=== PATIENT | female | born 1960 | race Caucasian/White ===

== ENCOUNTER 2023-08-06 10:18 | Inpatient (IN) | payer OTHER ==
[~2023-08-06] VITALS: Ht 170.2 cm; Wt 59.0 kg
[2023-08-06] MEDS ORDERED: LINA145C PO (10:32)
[2023-08-06] MEDS ORDERED: OXYC5CAP18 PO (10:32)
[2023-08-06] MEDS ORDERED: LACT10SO58 PO (10:32)
[2023-08-06] MEDS ORDERED: DOCU100C36 PO (10:32)
[2023-08-06] MEDS ORDERED: FURO20TA4 PO (10:32)
[2023-08-06] MEDS ORDERED: PANT40TA49 PO (10:32)
[2023-08-06] MEDS: IV NORMAL SALINE 1000 ML BAG IV ONE (10:40)
[2023-08-06] MEDS ORDERED: POLY17PO4 PO (10:48)
[2023-08-06] MEDS ORDERED: NALO4SPR NS (10:48)
[2023-08-06] MEDS ORDERED: METO-356 PO (10:48)
[2023-08-06] MEDS ORDERED: LIDOCAINE PATCH 4% TD (10:48)
[2023-08-06] MEDS ORDERED: NICO-625 TD (10:48)
[2023-08-06] MEDS ORDERED: GABA-532 PO (10:48)
[2023-08-06] MEDS ORDERED: ACET325C7 PO (10:49)
[2023-08-06] MEDS ORDERED: MAGN400O6 PO (10:49)
[2023-08-06] MEDS ORDERED: ASCO500C18 PO (10:49)
[2023-08-06] MEDS ORDERED: MULT-213 PO (10:49)
[2023-08-06] MEDS ORDERED: BISA10SU61 RC (10:49)
[2023-08-06] MEDS ORDERED: NA P133E RC (10:49)
[2023-08-06] MEDS ORDERED: ZINC SULFATE PO (10:49)
[2023-08-06] MEDS ORDERED: CEFTRIAXONE /D5W 50ML IVPB **ER PYXIS IV ONE (11:26)
[2023-08-06] MEDS ORDERED: METRONIDAZOLE 500 MG/NS 100ML 100 ML IV ONE (11:26)
[2023-08-06 11:47] LABS: BASOPHILS # (AUTO) 0.1 K/UL (0.0-0.2); BASOPHILS % (AUTO) 0.7 % (0.0-2.0); EOSINOPHILS % (AUTO) 0.3 % (0.0-7.0); HEMATOCRIT 46.1 % (31.2-41.9); HEMOGLOBIN 14.7 g/dL (10.9-14.3); LYMPHOCYTES # (AUTO) 1.8 K/uL (0.8-4.8); LYMPHOCYTES % (AUTO) 22.8 % (20.5-51.5); MEAN CORPUSCULAR HEMOGLOBIN 27.9 uug (24.7-32.8); MEAN CORPUSCULAR HGB CONC 32 g/dL (32.3-35.6); MEAN CORPUSCULAR VOLUME 87.7 fL (75.5-95.3); MONOCYTES # (AUTO) 0.6 K/uL (0.1-1.30); MONOCYTES % (AUTO) 7.3 % (0.0-11.0); NEUTROPHILS # (AUTO) 5.3 K/uL (1.8-8.9); NEUTROPHILS % (AUTO) 68.9 % (38.5-71.5); PLATELET COUNT (AUTO) 156 K/uL (179-408); RED BLOOD CELL COUNT(AUTO) 5.26 MIL/uL (3.63-4.92); RED CELL DISTRIBUTION WIDTH 18.7 % (12.3-17.7); WHITE BLOOD COUNT (AUTO) 7.8 K/uL (3.8-11.8)
[2023-08-06 11:49] LABS: DIFFERENTIAL COMMENT 1
[2023-08-06 11:49] LABS: ABG HCO3 31.1 mmol/L (22.0-26.0); ABG PCO2 46.4 mmHg (35.0-48.0); ABG PH 7.444 (7.340-7.440); ABG PO2 70.9 mmHg (75.0-100.0); ABG SITE RIGHT RADIAL; ABG TOTAL HEMOGLOBIN 13.9 G/dL (12.0-16.0); AaDO2 94.7 mmHg; MetHb 0.1 % (0.0-1.5); O2Hb 93.4 % (94.0-97.0)
[2023-08-06] MEDS: CEFTRIAXONE 1 G in IV DEXTROSE 5% 50 ML IV ONE (11:52)
[2023-08-06 12:15] LABS: CARBON DIOXIDE 28 mmol/L (21-32); CHLORIDE 98 mmol/L (98-107); CREATININE 1.5 mg/dL (0.6-1.3); GLUCOSE 146 mg/dL (74-106); SODIUM SERUM 138 mmol/L (136-145); UREA NITROGEN, BLOOD 52 mg/dL (7-18)
[2023-08-06 12:17] LABS: POTASSIUM 2.8 mmol/L (3.5-5.1)
[2023-08-06 12:23] LABS: ALANINE AMINOTRANSFERASE 36 U/L (14-59); ALBUMIN 2.6 g/dL (3.4-5.0); ALKALINE PHOSPHATASE 759 U/L (50-136); ASPARTATE AMINOTRANSFERASE 146 U/L (15-37); BILIRUBIN,DIRECT 0.2 mg/dL (0.0-0.2); BILIRUBIN,TOTAL 0.6 mg/dL (0.2-1.0); NT-PRO BNP 814 pg/mL (0-125); TOTAL PROTEIN, SERUM 7.5 g/dL (6.4-8.2)
[2023-08-06 12:24] LABS: CALCIUM 17.3 mg/dL (8.5-10.1)
[2023-08-06] MEDS: METRONIDAZOLE 500 MG/NS 100ML 100 ML IV ONE (12:25)
[2023-08-06] MEDS ORDERED: IV NS 1000 ML 1,000 ML IV PRN (14:30)
[2023-08-06] MEDS: POTASSIUM CHLORIDE 50 ML IV SCH ×2 (15:30→21:58)
[2023-08-06] MEDS: ENOXAPARIN SODIUM 40 MG/0.4 ML DISP.SYRIN SQ SCH (16:59)
[2023-08-06 18:00] VITALS: BP 124/69; TEMP 97.5; O2SAT 94
[2023-08-06] MEDS: PAMIDRONATE DISODIUM 30 MG in IV NORMAL SALINE 500 ML IV ONE (18:45)
[2023-08-06 20:00] VITALS: BP 105/66; TEMP 97.3; O2SAT 96
[2023-08-06] MEDS: IV NS 1000 ML 1,000 ML IV PRN ×2 (21:38→23:28)
[2023-08-06] MEDS: CLINDAMYCIN PHOSPHATE IV 600 MG in IV DEXTROSE 5% 100 ML IV SCH (21:40)
[2023-08-07] VITALS (7 sets, daily range): BP systolic 108–146; BP diastolic 61–81; TEMP 97.2–98.2; O2SAT 95–98
[2023-08-07] MEDS: MORPHINE SULFATE 2 MG/1 ML DISP.SYRIN IV PRN (01:01)
[2023-08-07 07:08] LABS: BASOPHILS % (AUTO) 0.8 % (0.0-2.0); EOSINOPHILS # (AUTO) 0.1 K/uL (0.0-0.7); EOSINOPHILS % (AUTO) 1.5 % (0.0-7.0); HEMATOCRIT 38.8 % (31.2-41.9); HEMOGLOBIN 12.5 g/dL (10.9-14.3); LYMPHOCYTES # (AUTO) 1.8 K/uL (0.8-4.8); LYMPHOCYTES % (AUTO) 30.6 % (20.5-51.5); MEAN CORPUSCULAR HEMOGLOBIN 28.1 uug (24.7-32.8); MEAN CORPUSCULAR HGB CONC 32 g/dL (32.3-35.6); MEAN CORPUSCULAR VOLUME 87.3 fL (75.5-95.3); MONOCYTES # (AUTO) 0.6 K/uL (0.1-1.30); MONOCYTES % (AUTO) 9.6 % (0.0-11.0); NEUTROPHILS # (AUTO) 3.4 K/uL (1.8-8.9); NEUTROPHILS % (AUTO) 57.5 % (38.5-71.5); PLATELET COUNT (AUTO) 151 K/uL (179-408); RED BLOOD CELL COUNT(AUTO) 4.45 MIL/uL (3.63-4.92); RED CELL DISTRIBUTION WIDTH 18.8 % (12.3-17.7); WHITE BLOOD COUNT (AUTO) 5.9 K/uL (3.8-11.8)
[2023-08-07 07:16] LABS: DIFFERENTIAL COMMENT 1
[2023-08-07 07:18] LABS: MAGNESIUM 1.6 mg/dL (1.8-2.4); PHOSPHOROUS 3.6 mg/dL (2.5-4.9)
[2023-08-07] MEDS: PROTEIN SUPPLEMENT (PROSTAT) 30 ML LIQUID PO SCH (12:44)
[2023-08-07] MEDS ORDERED: PAMIDRONATE DISODIUM 60 MG in IV NORMAL SALINE 500 ML IV ONE ×2 (15:00→16:00)
[2023-08-07] MEDS: CLOTRIMAZOLE 1% CREAM 30 GM TUBE TOP SCH (17:10)
[2023-08-07] MEDS: POTASSIUM CHLORIDE 20 MEQ TAB.PRT.SR PO SCH (17:20)
[2023-08-07] MEDS: MAGNESIUM OXIDE 400 MG TABLET PO ONE (17:58)
[2023-08-07] MEDS: CLOTRIMAZOLE/BETAMET DIPROP CREAM 15 GM TUBE TOP SCH (17:58)
[2023-08-07] MEDS: PAMIDRONATE DISODIUM 60 MG in IV NORMAL SALINE 500 ML IV ONE (18:21)
[2023-08-07] MEDS ORDERED: IOHEXOL 350 100 ML INFUS..BTL ONE (19:03)
[2023-08-07] MEDS ORDERED: IV NORMAL SALINE 250 ML IV ONE (19:03)
[2023-08-07] MEDS ORDERED: SWABABLE VALVE TRANSFER SET EA MC ONE (19:03)
[2023-08-08] MEDS: ENOXAPARIN SODIUM 60 MG/0.6 ML DISP.SYRIN SQ SCH (00:52)
[2023-08-08 04:52] VITALS: BP 128/62; TEMP 98.2; O2SAT 99
[2023-08-08 07:28] LABS: ALBUMIN 2.1 g/dL (3.4-5.0); BASOPHILS # (AUTO) 0.1 K/UL (0.0-0.2); BASOPHILS % (AUTO) 0.9 % (0.0-2.0); BILIRUBIN,TOTAL 0.6 mg/dL (0.2-1.0); EOSINOPHILS # (AUTO) 0.2 K/uL (0.0-0.7); EOSINOPHILS % (AUTO) 2.7 % (0.0-7.0); HEMATOCRIT 39.1 % (31.2-41.9); HEMOGLOBIN 12.9 g/dL (10.9-14.3); LYMPHOCYTES # (AUTO) 1.6 K/uL (0.8-4.8); LYMPHOCYTES % (AUTO) 27.6 % (20.5-51.5); MAGNESIUM 1.3 mg/dL (1.8-2.4); MEAN CORPUSCULAR HEMOGLOBIN 28.4 uug (24.7-32.8); MEAN CORPUSCULAR HGB CONC 33 g/dL (32.3-35.6); MEAN CORPUSCULAR VOLUME 86.2 fL (75.5-95.3); MONOCYTES # (AUTO) 0.5 K/uL (0.1-1.30); MONOCYTES % (AUTO) 8.7 % (0.0-11.0); NEUTROPHILS # (AUTO) 3.4 K/uL (1.8-8.9); NEUTROPHILS % (AUTO) 60.1 % (38.5-71.5); PHOSPHOROUS 2.7 mg/dL (2.5-4.9); PLATELET COUNT (AUTO) 148 K/uL (179-408); RED BLOOD CELL COUNT(AUTO) 4.54 MIL/uL (3.63-4.92); TOTAL PROTEIN, SERUM 6.5 g/dL (6.4-8.2); WHITE BLOOD COUNT (AUTO) 5.7 K/uL (3.8-11.8)
[2023-08-08 07:30] VITALS: BP 146/83; TEMP 97.6; O2SAT 98
[2023-08-08 07:33] LABS: DIFFERENTIAL COMMENT 1
[2023-08-08 08:08] LABS: CARCINOEMBRYONIC AG (CEA) 99.3 ng/mL (0.0-4.7)
[2023-08-08 08:23] LABS: CALCIUM 13.5 mg/dL (8.5-10.1)
[2023-08-08 08:24] LABS: POTASSIUM 3.5 mmol/L (3.5-5.1)
[2023-08-08 10:11] LABS: FOLATE (FOLIC ACID), SERUM 5.3 ng/mL (>3.0)
[2023-08-08 12:00] VITALS: BP 148/82; TEMP 97.2; O2SAT 97
[2023-08-08 12:09] LABS: *IMMUNOGLOBULIN G, SERUM 1032 mg/dL (586-1602); HEPATITIS B SURFACE AB, QUAL Reactive (.); HEPATITIS B SURFACE AG Negative (Negative); HEPATITIS C VIRUS ANTIBODY Non Reactive (Non Reactive); IMMUNOGLOBULIN A, SERUM 239 mg/dL (87-352); IMMUNOGLOBULIN M, SERUM 170 mg/dL (26-217)
[2023-08-08] MEDS ORDERED: CLINDAMYCIN PHOSPHATE IV 600 MG in IV DEXTROSE 5% 50 ML IV SCH (12:36)
[2023-08-08] MEDS: CLINDAMYCIN PHOSPHATE IV 600 MG in IV DEXTROSE 5% 50 ML IV SCH (13:06)
[2023-08-08 13:10] LABS: FREE KAPPA LT CHAINS SERUM 48.3 mg/L (3.3-19.4); FREE LAMBDA LT CHAIN SERUM 38.1 mg/L (5.7-26.3); KAPPA/LAMBDA RATIO SERUM 1.27 (0.26-1.65)
[2023-08-08 15:08] LABS: A/G RATIO 0.7 (0.7-1.7); ALBUMIN 2.1 g/dL (2.9-4.4); ALPHA-1-GLOBULIN 0.3 g/dL (0.0-0.4); ALPHA-2-GLOBULIN 0.9 g/dL (0.4-1.0); BETA GLOBULIN 0.8 g/dL (0.7-1.3); GLOBULIN, TOTAL 3.1 g/dL (2.2-3.9); M-SPIKE Not Observed g/dL (Not Observed)
[2023-08-08] MEDS ORDERED: GABA300C PO (15:20)
[2023-08-08 15:28] LABS: ANISOCYTOSIS 2+; PLATELET ESTIMATE ADEQUATE
[2023-08-08] MEDS ORDERED: TEMA7.5C PO (15:30)
[2023-08-08] MEDS ORDERED: LORA0.5T48 PO (15:30)
[2023-08-08 15:59] VITALS: BP 144/82; TEMP 97.2; O2SAT 97
[2023-08-08 16:13] LABS: LYMPHOCYTES % (MANUAL) 28 % (20-40); MONOCYTES % (MANUAL) 10 % (2-10); NEUTROPHILS % (MANUAL) 62 % (42-75)
[2023-08-09] VITALS (7 sets, daily range): BP systolic 112–174; BP diastolic 65–93; TEMP 97.7–98.2; O2SAT 94–100
[2023-08-09 08:22] LABS: POTASSIUM 2.2 mmol/L (3.5-5.1)
[2023-08-09 08:23] LABS: CALCIUM 11.9 mg/dL (8.5-10.1); CREATININE 0.8 mg/dL (0.6-1.3); MAGNESIUM 1.2 mg/dL (1.8-2.4)
[2023-08-09] MEDS: POTASSIUM CHLORIDE 50 ML IV SCH (08:51)
[2023-08-09] MEDS: POTASSIUM CHLORIDE 20 MEQ in IV NS 1000 ML 1,000 ML IV PRN (08:55)
[2023-08-09 09:03] LABS: LYMPHOCYTES % (MANUAL) 0 % (20-40); NEUTROPHILS % (MANUAL) 0 % (42-75)
[2023-08-09] MEDS: MAGNESIUM OXIDE 400 MG TABLET PO SCH (11:03)
[2023-08-10 00:53] VITALS: BP 156/90; TEMP 98.2; O2SAT 100
[2023-08-10 04:44] VITALS: BP 156/90; TEMP 98.4; O2SAT 100
[2023-08-10] MEDS: MAGNESIUM HYDROXIDE 30 ML LIQUID UDC PO ONE (06:07)
[2023-08-10 07:08] LABS: BASOPHILS % (AUTO) 0.7 % (0.0-2.0); EOSINOPHILS # (AUTO) 0.1 K/uL (0.0-0.7); HEMOGLOBIN 11.5 g/dL (10.9-14.3); LYMPHOCYTES # (AUTO) 1.7 K/uL (0.8-4.8); LYMPHOCYTES % (AUTO) 28.2 % (20.5-51.5); MEAN CORPUSCULAR HEMOGLOBIN 28.2 uug (24.7-32.8); MEAN CORPUSCULAR HGB CONC 33 g/dL (32.3-35.6); MEAN CORPUSCULAR VOLUME 85.7 fL (75.5-95.3); MONOCYTES # (AUTO) 0.6 K/uL (0.1-1.30); MONOCYTES % (AUTO) 9.1 % (0.0-11.0); NEUTROPHILS # (AUTO) 3.7 K/uL (1.8-8.9); PLATELET COUNT (AUTO) 184 K/uL (179-408); RED BLOOD CELL COUNT(AUTO) 4.09 MIL/uL (3.63-4.92); RED CELL DISTRIBUTION WIDTH 19.3 % (12.3-17.7); WHITE BLOOD COUNT (AUTO) 6.2 K/uL (3.8-11.8)
[2023-08-10 07:44] LABS: CALCIUM 10.6 mg/dL (8.5-10.1); CREATININE 0.8 mg/dL (0.6-1.3); MAGNESIUM 1.4 mg/dL (1.8-2.4); PHOSPHOROUS 1.9 mg/dL (2.5-4.9); POTASSIUM 3.6 mmol/L (3.5-5.1)
[2023-08-10 07:50] LABS: DIFFERENTIAL COMMENT 1
[2023-08-10] MEDS: ACETAMINOPHEN 325 MG TABLET PO PRN (08:52)
[2023-08-10] MEDS ORDERED: TEMAZEPAM 7.5 MG CAPSULE PO PRN (09:45)
[2023-08-10] MEDS: LACTULOSE 20 G/30 ML LIQUID UDC PO SCH (10:59)
[2023-08-10] MEDS: ZINC SULFATE 220 MG CAPSULE PO SCH (10:59)
[2023-08-10] MEDS: PANTOPRAZOLE SODIUM 40 MG TABLET.DR PO SCH (10:59)
[2023-08-10] MEDS: ASCORBIC ACID 500 MG TABLET PO SCH (11:00)
[2023-08-10] MEDS: MULTIVITAMINS,THERAPEUTIC TABLET PO SCH (11:00)
[2023-08-10] MEDS: GABAPENTIN 300 MG CAPSULE PO SCH (11:00)
[2023-08-10] MEDS: LIDOCAINE 5% PATCH TD SCH (11:00)
[2023-08-10] MEDS: METOPROLOL SUCCINATE XL 25 MG TAB.SR.24H PO SCH (11:00)
[2023-08-10] MEDS: MAGNESIUM OXIDE 400 MG TABLET PO SCH (13:27)
[2023-08-10] MEDS: CLINDAMYCIN HCL 300 MG CAPSULE PO SCH (13:28)
[2023-08-10] MEDS: LORAZEPAM 1 MG TABLET PO PRN (13:34)
[2023-08-10] MEDS: NEUTRA PHOS PACKET PO ONE (15:28)
[2023-08-10 16:00] VITALS: BP 95/59; TEMP 98.1; O2SAT 97
[2023-08-10] MEDS: DOCUSATE SODIUM 100 MG CAPSULE PO SCH (17:29)
[2023-08-10] MEDS: MIRALAX 17 GM POWD.PACK PO SCH (17:29)
[2023-08-10 20:30] VITALS: BP 151/87; TEMP 97.7; O2SAT 96
[2023-08-11 00:06] VITALS: BP 125/81; TEMP 98.1; O2SAT 95
[2023-08-11 06:03] VITALS: BP 149/91; TEMP 98; O2SAT 95
[2023-08-11 07:02] LABS: BASOPHILS % (AUTO) 0.6 % (0.0-2.0); DIFFERENTIAL COMMENT 1; EOSINOPHILS # (AUTO) 0.1 K/uL (0.0-0.7); EOSINOPHILS % (AUTO) 1.4 % (0.0-7.0); HEMOGLOBIN 12.6 g/dL (10.9-14.3); LYMPHOCYTES # (AUTO) 2.1 K/uL (0.8-4.8); LYMPHOCYTES % (AUTO) 29.1 % (20.5-51.5); MEAN CORPUSCULAR HEMOGLOBIN 28.5 uug (24.7-32.8); MEAN CORPUSCULAR HGB CONC 33 g/dL (32.3-35.6); MEAN CORPUSCULAR VOLUME 85.6 fL (75.5-95.3); MONOCYTES # (AUTO) 0.5 K/uL (0.1-1.30); MONOCYTES % (AUTO) 7.2 % (0.0-11.0); NEUTROPHILS # (AUTO) 4.4 K/uL (1.8-8.9); NEUTROPHILS % (AUTO) 61.7 % (38.5-71.5); PLATELET COUNT (AUTO) 199 K/uL (179-408); RED BLOOD CELL COUNT(AUTO) 4.44 MIL/uL (3.63-4.92); RED CELL DISTRIBUTION WIDTH 20.1 % (12.3-17.7); WHITE BLOOD COUNT (AUTO) 7.2 K/uL (3.8-11.8)
[2023-08-11 07:34] LABS: ALBUMIN 2.3 g/dL (3.4-5.0); PHOSPHOROUS 1.8 mg/dL (2.5-4.9); POTASSIUM 4.1 mmol/L (3.5-5.1)
[2023-08-11 07:40] VITALS: BP 146/40; TEMP 97.2; O2SAT 97
[2023-08-11] MEDS: IV NS 1000 ML 1,000 ML IV PRN (12:45)
[2023-08-11] MEDS ORDERED: CLIN300C12 PO (15:41)
[2023-08-11] MEDS ORDERED: APIX5TAB PO (15:41)
[2023-08-11 15:50] VITALS: BP 148/85; TEMP 97.6; O2SAT 90
[2023-08-11] MEDS: NEUTRA PHOS PACKET PO ONE (16:50)
[2023-08-11 19:37] VITALS: BP 151/88; TEMP 98.6; O2SAT 92
[2023-08-12 04:50] VITALS: BP 154/92; TEMP 98.6; O2SAT 97
[2023-08-12] MEDS: ENSURE ENLIVE (VAN) 240 ML LIQUID PO SCH (09:13)
[2023-08-12 11:46] VITALS: BP 140/90; TEMP 98.8; O2SAT 97
[2023-08-12] MEDS: MAGNESIUM SULFATE/D5W 100 ML IV ONE (15:54)
[2023-08-12 16:00] VITALS: BP 115/70; TEMP 98.6; O2SAT 95
[2023-08-12] MEDS: PREGABALIN 25 MG CAPSULE PO SCH (16:38)
[2023-08-12 20:00] VITALS: BP 145/85; TEMP 98.2; O2SAT 99
[2023-08-13 06:00] VITALS: BP 140/70; TEMP 99.1; O2SAT 96
[2023-08-13 06:51] LABS: BASOPHILS # (AUTO) 0.1 K/UL (0.0-0.2); BASOPHILS % (AUTO) 1.4 % (0.0-2.0); EOSINOPHILS # (AUTO) 0.2 K/uL (0.0-0.7); EOSINOPHILS % (AUTO) 2.1 % (0.0-7.0); HEMATOCRIT 34.7 % (31.2-41.9); HEMOGLOBIN 11.5 g/dL (10.9-14.3); LYMPHOCYTES # (AUTO) 2.5 K/uL (0.8-4.8); LYMPHOCYTES % (AUTO) 28.5 % (20.5-51.5); MEAN CORPUSCULAR HEMOGLOBIN 28.1 uug (24.7-32.8); MEAN CORPUSCULAR HGB CONC 33 g/dL (32.3-35.6); MEAN CORPUSCULAR VOLUME 85.1 fL (75.5-95.3); MONOCYTES # (AUTO) 0.6 K/uL (0.1-1.30); MONOCYTES % (AUTO) 7.4 % (0.0-11.0); NEUTROPHILS # (AUTO) 5.3 K/uL (1.8-8.9); NEUTROPHILS % (AUTO) 60.6 % (38.5-71.5); PLATELET COUNT (AUTO) 188 K/uL (179-408); RED BLOOD CELL COUNT(AUTO) 4.08 MIL/uL (3.63-4.92); RED CELL DISTRIBUTION WIDTH 19.8 % (12.3-17.7); WHITE BLOOD COUNT (AUTO) 8.8 K/uL (3.8-11.8)
[2023-08-13 07:07] LABS: CALCIUM 8.6 mg/dL (8.5-10.1)
[2023-08-13 07:09] LABS: POTASSIUM 2.8 mmol/L (3.5-5.1)
[2023-08-13 07:17] LABS: DIFFERENTIAL COMMENT 1
[2023-08-13 08:00] VITALS: BP 137/77; TEMP 97.6; O2SAT 98
[2023-08-13] MEDS: APIXABAN 5 MG TABLET PO SCH (11:24)
[2023-08-13] MEDS: POTASSIUM CHLORIDE 10 MEQ TAB.PRT.SR PO SCH (11:27)
[2023-08-13 11:56] VITALS: BP 127/80; TEMP 97.8; O2SAT 98
[2023-08-13] MEDS: HYDROCODONE/APAP 10-325 MG TABLET PO PRN (13:30)
[2023-08-13 16:00] VITALS: O2SAT 97
[2023-08-13 16:25] VITALS: BP 156/79; TEMP 97.8; O2SAT 97
[2023-08-13 20:00] VITALS: BP 113/76; TEMP 98.4; O2SAT 96
[2023-08-14 06:00] VITALS: BP 110/72; TEMP 99.7; O2SAT 95
[2023-08-14 12:00] VITALS: BP 118/76; TEMP 97.8; O2SAT 96
[2023-08-14 15:50] VITALS: O2SAT 98
[2023-08-14 16:07] VITALS: BP 119/76; TEMP 98.8; O2SAT 95
[2023-08-14 16:21] LABS: CALCIUM 8.4 mg/dL (8.5-10.1); CREATININE 0.8 mg/dL (0.6-1.3); POTASSIUM 3.9 mmol/L (3.5-5.1)
[2023-08-14 20:00] VITALS: BP 95/61; TEMP 97.8; O2SAT 98
[2023-08-15 06:00] VITALS: BP 127/65; TEMP 98.4; O2SAT 96
[2023-08-15 07:47] LABS: BASOPHILS # (AUTO) 0.1 K/UL (0.0-0.2); BASOPHILS % (AUTO) 0.6 % (0.0-2.0); EOSINOPHILS # (AUTO) 0.1 K/uL (0.0-0.7); HEMATOCRIT 34.4 % (31.2-41.9); HEMOGLOBIN 11.4 g/dL (10.9-14.3); LYMPHOCYTES # (AUTO) 1.9 K/uL (0.8-4.8); LYMPHOCYTES % (AUTO) 20.3 % (20.5-51.5); MEAN CORPUSCULAR HEMOGLOBIN 28.4 uug (24.7-32.8); MEAN CORPUSCULAR HGB CONC 33 g/dL (32.3-35.6); MEAN CORPUSCULAR VOLUME 85.6 fL (75.5-95.3); MONOCYTES # (AUTO) 0.9 K/uL (0.1-1.30); MONOCYTES % (AUTO) 9.9 % (0.0-11.0); NEUTROPHILS # (AUTO) 6.2 K/uL (1.8-8.9); NEUTROPHILS % (AUTO) 68.2 % (38.5-71.5); PLATELET COUNT (AUTO) 195 K/uL (179-408); RED BLOOD CELL COUNT(AUTO) 4.02 MIL/uL (3.63-4.92); RED CELL DISTRIBUTION WIDTH 20.1 % (12.3-17.7); WHITE BLOOD COUNT (AUTO) 9.2 K/uL (3.8-11.8)
[2023-08-15 08:07] LABS: DIFFERENTIAL COMMENT 1
[2023-08-15 11:23] VITALS: BP 105/54; TEMP 98.6; O2SAT 95
[2023-08-15 15:15] VITALS: O2SAT 96
[2023-08-15 15:40] VITALS: BP 102/56; TEMP 98.8; O2SAT 94
[2023-08-15 20:00] VITALS: BP 120/83; TEMP 99.2; O2SAT 94
[2023-08-15] MEDS: ONDANSETRON 4 MG/2 ML VIAL IV PRN (23:24)
[2023-08-16 06:02] VITALS: BP 113/72; TEMP 97.7; O2SAT 96
[2023-08-16 08:27] LABS: CREATININE 0.7 mg/dL (0.6-1.3); POTASSIUM 4.5 mmol/L (3.5-5.1)
[2023-08-16 08:40] LABS: BASOPHILS # (AUTO) 0.1 K/UL (0.0-0.2); BASOPHILS % (AUTO) 0.7 % (0.0-2.0); DIFFERENTIAL COMMENT 0; EOSINOPHILS # (AUTO) 0.1 K/uL (0.0-0.7); EOSINOPHILS % (AUTO) 0.9 % (0.0-7.0); HEMATOCRIT 31.7 % (31.2-41.9); HEMOGLOBIN 10.6 g/dL (10.9-14.3); LYMPHOCYTES # (AUTO) 1.8 K/uL (0.8-4.8); LYMPHOCYTES % (AUTO) 20.2 % (20.5-51.5); MEAN CORPUSCULAR HEMOGLOBIN 28.3 uug (24.7-32.8); MEAN CORPUSCULAR HGB CONC 33 g/dL (32.3-35.6); MEAN CORPUSCULAR VOLUME 84.9 fL (75.5-95.3); MONOCYTES % (AUTO) 11.6 % (0.0-11.0); NEUTROPHILS # (AUTO) 5.8 K/uL (1.8-8.9); NEUTROPHILS % (AUTO) 66.6 % (38.5-71.5); PLATELET COUNT (AUTO) 193 K/uL (179-408); RED BLOOD CELL COUNT(AUTO) 3.73 MIL/uL (3.63-4.92); RED CELL DISTRIBUTION WIDTH 19.8 % (12.3-17.7); WHITE BLOOD COUNT (AUTO) 8.7 K/uL (3.8-11.8)
[2023-08-16 11:14] VITALS: BP 98/65; TEMP 98.3; O2SAT 99
[2023-08-16 15:38] VITALS: BP 138/73; TEMP 99.8; O2SAT 96
[2023-08-16 16:00] VITALS: O2SAT 98
[2023-08-16 20:39] VITALS: BP 109/71; TEMP 98.6; O2SAT 93
[2023-08-17 07:33] LABS: BASOPHILS # (AUTO) 0.1 K/UL (0.0-0.2); BASOPHILS % (AUTO) 0.8 % (0.0-2.0); EOSINOPHILS # (AUTO) 0.1 K/uL (0.0-0.7); EOSINOPHILS % (AUTO) 0.6 % (0.0-7.0); HEMATOCRIT 30.5 % (31.2-41.9); HEMOGLOBIN 10.4 g/dL (10.9-14.3); LYMPHOCYTES # (AUTO) 2.5 K/uL (0.8-4.8); LYMPHOCYTES % (AUTO) 25.8 % (20.5-51.5); MEAN CORPUSCULAR HEMOGLOBIN 29.1 uug (24.7-32.8); MEAN CORPUSCULAR HGB CONC 34 g/dL (32.3-35.6); MEAN CORPUSCULAR VOLUME 85.6 fL (75.5-95.3); MONOCYTES % (AUTO) 9.8 % (0.0-11.0); NEUTROPHILS # (AUTO) 6.1 K/uL (1.8-8.9); PLATELET COUNT (AUTO) 224 K/uL (179-408); RED BLOOD CELL COUNT(AUTO) 3.56 MIL/uL (3.63-4.92); WHITE BLOOD COUNT (AUTO) 9.7 K/uL (3.8-11.8)
[2023-08-17 07:48] LABS: DIFFERENTIAL COMMENT 1
[2023-08-17 07:54] LABS: CREATININE 0.7 mg/dL (0.6-1.3); POTASSIUM 4.6 mmol/L (3.5-5.1)
[2023-08-17 08:19] LABS: CALCIUM 9.4 mg/dL (8.5-10.1)
[2023-08-17 10:05] VITALS: BP 87/52; TEMP 98; O2SAT 94
[2023-08-17 11:47] VITALS: BP 102/67; TEMP 97.9; O2SAT 100
[2023-08-17 14:30] VITALS: O2SAT 98
[2023-08-17 16:45] VITALS: BP 111/68; TEMP 99.3; O2SAT 95
[2023-08-17 20:00] VITALS: BP 106/74; TEMP 97.9; O2SAT 94
[2023-08-18] VITALS (7 sets, daily range): BP systolic 113–128; BP diastolic 49–74; TEMP 97.6–98.6; O2SAT 95–98
[2023-08-18 07:20] LABS: BASOPHILS # (AUTO) 0.1 K/UL (0.0-0.2); BASOPHILS % (AUTO) 0.6 % (0.0-2.0); EOSINOPHILS % (AUTO) 0.2 % (0.0-7.0); HEMATOCRIT 25.5 % (31.2-41.9); HEMOGLOBIN 8.6 g/dL (10.9-14.3); LYMPHOCYTES # (AUTO) 2.5 K/uL (0.8-4.8); LYMPHOCYTES % (AUTO) 25.4 % (20.5-51.5); MEAN CORPUSCULAR HEMOGLOBIN 28.6 uug (24.7-32.8); MEAN CORPUSCULAR HGB CONC 34 g/dL (32.3-35.6); MONOCYTES # (AUTO) 1.3 K/uL (0.1-1.30); MONOCYTES % (AUTO) 12.9 % (0.0-11.0); NEUTROPHILS % (AUTO) 60.9 % (38.5-71.5); PLATELET COUNT (AUTO) 226 K/uL (179-408); RED CELL DISTRIBUTION WIDTH 19.9 % (12.3-17.7); WHITE BLOOD COUNT (AUTO) 9.8 K/uL (3.8-11.8)
[2023-08-18 07:45] LABS: CALCIUM 9.5 mg/dL (8.5-10.1); CREATININE 0.6 mg/dL (0.6-1.3); POTASSIUM 4.5 mmol/L (3.5-5.1)
[2023-08-18 07:58] LABS: DIFFERENTIAL COMMENT 1
[2023-08-18 08:09] LABS: ALBUMIN 1.6 g/dL (3.4-5.0)
[2023-08-18 13:38] LABS: HEMATOCRIT 27.6 % (31.2-41.9); HEMOGLOBIN 9.1 g/dL (10.9-14.3)
[2023-08-18 17:14] LABS: *OCCULT BLOOD STOOL POSITIVE (NEGATIVE)
[2023-08-19 04:09] VITALS: O2SAT 98
[2023-08-19 05:10] VITALS: BP 117/77; TEMP 98.2; O2SAT 98
[2023-08-19 07:35] LABS: BASOPHILS # (AUTO) 0.1 K/UL (0.0-0.2); BASOPHILS % (AUTO) 0.8 % (0.0-2.0); EOSINOPHILS % (AUTO) 0.4 % (0.0-7.0); HEMATOCRIT 25.9 % (31.2-41.9); HEMOGLOBIN 8.5 g/dL (10.9-14.3); LYMPHOCYTES # (AUTO) 2.2 K/uL (0.8-4.8); LYMPHOCYTES % (AUTO) 24.7 % (20.5-51.5); MEAN CORPUSCULAR HEMOGLOBIN 28.6 uug (24.7-32.8); MEAN CORPUSCULAR HGB CONC 33 g/dL (32.3-35.6); MEAN CORPUSCULAR VOLUME 87.3 fL (75.5-95.3); MONOCYTES # (AUTO) 1.1 K/uL (0.1-1.30); MONOCYTES % (AUTO) 12.4 % (0.0-11.0); NEUTROPHILS # (AUTO) 5.5 K/uL (1.8-8.9); NEUTROPHILS % (AUTO) 61.7 % (38.5-71.5); PLATELET COUNT (AUTO) 244 K/uL (179-408); RED BLOOD CELL COUNT(AUTO) 2.97 MIL/uL (3.63-4.92); RED CELL DISTRIBUTION WIDTH 20.1 % (12.3-17.7); WHITE BLOOD COUNT (AUTO) 8.9 K/uL (3.8-11.8)
[2023-08-19 08:03] LABS: CALCIUM 9.6 mg/dL (8.5-10.1); CREATININE 0.5 mg/dL (0.6-1.3); MAGNESIUM 1.9 mg/dL (1.8-2.4); PHOSPHOROUS 3.5 mg/dL (2.5-4.9); POTASSIUM 4.3 mmol/L (3.5-5.1)
[2023-08-19 09:02] LABS: DIFFERENTIAL COMMENT 1
[2023-08-19 11:51] VITALS: BP 105/60; TEMP 98.7; O2SAT 95
[2023-08-19 14:24] LABS: HEMATOCRIT 23.8 % (31.2-41.9); HEMOGLOBIN 7.8 g/dL (10.9-14.3)
[2023-08-19 16:17] VITALS: BP 118/77; TEMP 97.7; O2SAT 98
[2023-08-19 16:27] LABS: BAND % (MANUAL) 15 % (0-10); EOSINOPHILS % (MANUAL) 1 % (0-8); LYMPHOCYTES % (MANUAL) 28 % (20-40); MONOCYTES % (MANUAL) 10 % (2-10); NEUTROPHILS % (MANUAL) 43 % (42-75)
[2023-08-19 16:28] LABS: ANISOCYTOSIS 2+; METAMYELOCYTES % 3 % (0-1); PLATELET ESTIMATE ADEQUATE
[2023-08-19] MEDS ORDERED: PROPOFOL 200 MG/20 ML BOTTLE ONE (17:14)
[2023-08-19 20:16] LABS: HEMATOCRIT 25.1 % (31.2-41.9); HEMOGLOBIN 8.2 g/dL (10.9-14.3)
[2023-08-19] MEDS: IV NS 1000 ML 1,000 ML IV PRN (20:24)
[2023-08-19] MEDS: HEPARIN/D5W DRIP 500 ML IV PRN (20:25)
[2023-08-19] MEDS: PANTOPRAZOLE SODIUM 40 MG VIAL IV SCH (21:38)
[2023-08-19 22:21] VITALS: BP 108/43; TEMP 97.9; O2SAT 93
[2023-08-19 22:33] VITALS: O2SAT 98
[2023-08-20] VITALS (9 sets, daily range): BP systolic 98–129; BP diastolic 49–78; TEMP 97.8–98.8; O2SAT 94–98
[2023-08-20 08:33] LABS: BASOPHILS # (AUTO) 0.1 K/UL (0.0-0.2); BASOPHILS % (AUTO) 0.8 % (0.0-2.0); EOSINOPHILS % (AUTO) 0.4 % (0.0-7.0); HEMATOCRIT 21.8 % (31.2-41.9); LYMPHOCYTES # (AUTO) 2.7 K/uL (0.8-4.8); LYMPHOCYTES % (AUTO) 27.7 % (20.5-51.5); MEAN CORPUSCULAR HGB CONC 33 g/dL (32.3-35.6); MEAN CORPUSCULAR VOLUME 87.2 fL (75.5-95.3); MONOCYTES # (AUTO) 1.1 K/uL (0.1-1.30); NEUTROPHILS # (AUTO) 5.7 K/uL (1.8-8.9); NEUTROPHILS % (AUTO) 60.1 % (38.5-71.5); PLATELET COUNT (AUTO) 230 K/uL (179-408); RED BLOOD CELL COUNT(AUTO) 2.51 MIL/uL (3.63-4.92); WHITE BLOOD COUNT (AUTO) 9.6 K/uL (3.8-11.8)
[2023-08-20 08:43] LABS: CALCIUM 8.5 mg/dL (8.5-10.1); CREATININE 0.5 mg/dL (0.6-1.3); POTASSIUM 3.7 mmol/L (3.5-5.1)
[2023-08-20 08:58] LABS: DIFFERENTIAL COMMENT 1
[2023-08-20 08:59] LABS: HEMOGLOBIN 7.3 g/dL (10.9-14.3)
[2023-08-20] MEDS ORDERED: APIXABAN 5 MG TABLET PO SCH (09:00)
[2023-08-20] MEDS: ACETAMINOPHEN 325 MG TABLET PO ONE (17:54)
[2023-08-20] MEDS: diphenhydrAMINE 50 MG/1 ML VIAL IV ONE (17:54)
[2023-08-20 19:08] LABS: HEMATOCRIT 20.2 % (31.2-41.9); HEMOGLOBIN 6.6 g/dL (10.9-14.3)
[2023-08-21 01:39] LABS: HEMATOCRIT 24.4 % (31.2-41.9)
[2023-08-21 05:04] VITALS: O2SAT 97
[2023-08-21 06:00] VITALS: BP 120/67; TEMP 98.1; O2SAT 97
[2023-08-21 09:24] LABS: BASOPHILS # (AUTO) 0.1 K/UL (0.0-0.2); DIFFERENTIAL COMMENT 0; EOSINOPHILS # (AUTO) 0.1 K/uL (0.0-0.7); HEMATOCRIT 25.5 % (31.2-41.9); HEMOGLOBIN 8.4 g/dL (10.9-14.3); LYMPHOCYTES # (AUTO) 2.6 K/uL (0.8-4.8); LYMPHOCYTES % (AUTO) 29.8 % (20.5-51.5); MEAN CORPUSCULAR HGB CONC 33 g/dL (32.3-35.6); MEAN CORPUSCULAR VOLUME 87.7 fL (75.5-95.3); MONOCYTES # (AUTO) 0.8 K/uL (0.1-1.30); MONOCYTES % (AUTO) 9.5 % (0.0-11.0); NEUTROPHILS # (AUTO) 5.2 K/uL (1.8-8.9); NEUTROPHILS % (AUTO) 58.7 % (38.5-71.5); PLATELET COUNT (AUTO) 241 K/uL (179-408); RED CELL DISTRIBUTION WIDTH 18.6 % (12.3-17.7); WHITE BLOOD COUNT (AUTO) 8.8 K/uL (3.8-11.8)
[2023-08-21 09:25] LABS: CALCIUM 8.3 mg/dL (8.5-10.1); CREATININE 0.6 mg/dL (0.6-1.3); POTASSIUM 3.3 mmol/L (3.5-5.1)
[2023-08-21 11:27] VITALS: BP 120/101; TEMP 97.6; O2SAT 94
[2023-08-21 11:59] VITALS: BP 120/101
[2023-08-21] MEDS ORDERED: PROT30LI PO (11:59)
[2023-08-21] MEDS ORDERED: Lactose-Free Food PO (11:59)
[2023-08-21] MEDS ORDERED: CLOT30CR24 TOP (11:59)
[2023-08-21] MEDS ORDERED: PREG25CA PO (11:59)
[2023-08-21] MEDS ORDERED: CLOT15CR36 TOP (11:59)
[2023-08-21] MEDS ORDERED: ENOX40DI SQ (11:59)
== END 2023-08-21 14:25 | disposition hospice, inpatient (51) | DRG 871 ==
LOC: ER 10:18 → TELE3 14:51 → MEDSURG3 08-11 08:25
PROVIDERS: ADMIT Nurse Practitioner Acute Care; ATTEND Nurse Practitioner Acute Care
PROC: 05H933Z Insertion of Infusion Device into Right Brachial Vein, Percutaneous Approach (ICD-10-PCS; 2023-08-08)
PROC: 0DB68ZX Excision of Stomach, Via Natural or Artificial Opening Endoscopic, Diagnostic (ICD-10-PCS; principal; 2023-08-19)
PROC: 05HB33Z Insertion of Infusion Device into Right Basilic Vein, Percutaneous Approach (ICD-10-PCS; 2023-08-19)
PROC: 02HV33Z Insertion of Infusion Device into Superior Vena Cava, Percutaneous Approach (ICD-10-PCS; 2023-08-20)
PROC: 30243N1 Transfusion of Nonautologous Red Blood Cells into Central Vein, Percutaneous Approach (ICD-10-PCS; 2023-08-20)
DX: A41.9 Sepsis, unspecified organism (principal); I21.A1 Myocardial infarction type 2; J96.01 Acute respiratory failure with hypoxia; I26.94 Multiple subsegmental thrombotic pulmonary emboli without acute cor pulmonale; J69.0 Pneumonitis due to inhalation of food and vomit; N17.0 Acute kidney failure with tubular necrosis; R65.21 Severe sepsis with septic shock; K29.71 Gastritis, unspecified, with bleeding; I26.99 Other pulmonary embolism without acute cor pulmonale; J15.9 Unspecified bacterial pneumonia; C79.51 Secondary malignant neoplasm of bone; C78.7 Secondary malignant neoplasm of liver and intrahepatic bile duct; C79.81 Secondary malignant neoplasm of breast; E44.0 Moderate protein-calorie malnutrition; E87.20 Acidosis, unspecified; M84.58XA Pathological fracture in neoplastic disease, other specified site, initial encounter for fracture; J43.2 Centrilobular emphysema; C80.1 Malignant (primary) neoplasm, unspecified; N20.0 Calculus of kidney; K21.9 Gastro-esophageal reflux disease without esophagitis; E88.09 Other disorders of plasma-protein metabolism, not elsewhere classified; E87.6 Hypokalemia; E78.5 Hyperlipidemia, unspecified; E83.42 Hypomagnesemia; E83.52 Hypercalcemia; F19.10 Other psychoactive substance abuse, uncomplicated; R74.01 Elevation of levels of liver transaminase levels; R21 Rash and other nonspecific skin eruption; R65.20 Severe sepsis without septic shock; I10 Essential (primary) hypertension; D69.6 Thrombocytopenia, unspecified; Z79.01 Long term (current) use of anticoagulants; Z79.899 Other long term (current) drug therapy
CPT/HCPCS: 36415; 36569; 36600; 70030-TC; 70450; 71045; 71275; 82378; 82746; 82784; 83550; 83605; 83690; 83735; 83970; 84100; 84155; 84165; 84443; 84484; 85018; 85025; 85730; 86300; 86334; 86706; 86803; 86850; 86900; 86901; 86920; 87040; 87340; 88313-TC; 88342; 93005; 93307; A4606; A4663; A6213; C1758; C9113; G0378; J0690; J0696; J1200; J1644; J1650; J2270; J2405; J2430; J3475; J3480; J3490; J7040; P9016; Q9967